=== PATIENT | male | born 1985 | race Caucasian/White ===

== ENCOUNTER 2022-07-14 19:25 | Emergency (ER) | payer OTHER ==
[2022-07-14 19:35] VITALS: BP 132/85; PULSE 93; RESP 20; TEMP 98.2; BMI 28.3
[2022-07-14] MEDS ORDERED: IBUPROFEN 600 MG TABLET (FP) PO ONE ×2 (20:08)
== END 2022-07-14 20:19 | disposition home or self-care (01) ==
LOC: JERFT 19:25
DX: M79.645 Pain in left finger(s) (principal)
CPT/HCPCS: 73140-TC-LT-FY; 99284-25

== ENCOUNTER 2024-12-23 18:15 | Emergency (ER) | payer OTHER ==
[2024-12-23 18:31] VITALS: BP 127/87; PULSE 68; RESP 20; TEMP 98; BMI 28.7
[2024-12-23] MEDS ORDERED: SULFAMETHOXAZOLE/TRIMETHOPRIM 800MG/160MG D.S. TABLET ONE (19:56)
[2024-12-23] MEDS: SULFAMETHOXAZOLE/TRIMETHOPRIM 400MG/80MG S.S. TABLET PO ONE (19:59)
== END 2024-12-23 20:11 | disposition home or self-care (01) ==
LOC: JER 18:15
DX: L60.0 Ingrowing nail (principal)
CPT/HCPCS: 99283-25